=== PATIENT | male | born 2000 | race Caucasian/White ===

== ENCOUNTER → 2021-12-22 13:45 | Outpatient (CLI) | payer OTHER, SELFPAY ==
--- NOTE | ~2021-12-22 | XR_ITS ---
EXAMINATION: XR chest 2V DATE: 12/22/2021 14:34 INDICATION: Shortness of breath. TECHNIQUE: Frontal and lateral views of the chest were obtained. COMPARISON: None. FINDINGS: The chest demonstrates clear lungs without pneumonia, pleural effusion, or pneumothorax. Th e heart size is normal. IMPRESSION: 1. No acute cardiopulmonary disease. Reviewed, dictated and finalized at location A.
== END ==
DX: R06.02 Shortness of breath (principal)
CPT/HCPCS: 71046

== ENCOUNTER 2023-10-16 11:35 | Emergency (ER) | payer OTHER, SELFPAY ==
[2023-10-16 11:35] VITALS: BP 103/62; PULSE 53; RESP 18; TEMP 36.4; O2SAT 97
[2023-10-16 12:01] VITALS: BP 101/70; PULSE 51; RESP 16; O2SAT 100
[2023-10-16] MEDS: SODIUM CHLORIDE 0.9% IV 1,000 ML 999 ML IV CONT (12:02)
[2023-10-16 12:20] LABS: Anion Gap 12 mmol/L (4-12); Blood Urea Nitrogen 13 mg/dL (9-20); Calcium 9.5 mg/dL (8.4-10.2); Carbon Dioxide 24 mmol/L (22-30); Chloride 103 mmol/L (98-107); Estimated CRCL calculation 92 ml/min; Estimated Glomerular Filt Rate > 60; Glucose 93 mg/dL (65-110); Potassium 3.5 mmol/L (3.4-5.0); Sodium 139 mmol/L (137-145)
[2023-10-16 12:29] LABS: Creatine Kinase 52 U/L (55-170)
--- NOTE | 2023-10-16 13:16 | ED.GENADULT ---
HPI - General Adult General Chief complaint: Environmental Exposure Stated complaint: exhausted Time Seen by Provider: 10/16/23 11:40 History of Present Illness HPI narrative: Patient is a 23-year-old male who presents ER after getting overheated. He is riding a bike around town and went about 3 miles. He did not bring a water with him and felt exhausted. He stopped it a person's house to get water in late and there grass in the called an ambulance. He has no pain. No chest pain or shortness of breath. No additional concerns or complaints. Related Data Allergies Allergy/AdvReac Type Severity Reaction Status Date / Time acetaminophen [From Vicodin] Allergy Nausea Verified 10/16/23 11:41 hydrocodone [From Vicodin] Allergy Nausea Verified 10/16/23 11:41 Review of Systems Constitutional: Constitutional: Reports excessive sweating, Denies fever(s), Reports lethargy and Reports weakness ENT: Reports system reviewed and no additional complaints, except as documented Cardiovascular: Cardiovascular: Reports no additional cardiovascular complaints Respiratory: Respiratory: Reports no additional respiratory complaints [facility] Past Medical History Medical History (Updated 10/16/23 @ 13:43 by Tino Baig MD) Healthy adult male Surgical History Surgical History (Updated 10/16/23 @ 13:17 by Tino Baig MD) No history of previous surgery Exam Narrative: GENERAL: Well-appearing, well-nourished, and in no acute distress. HEAD: Normocephalic, atraumatic. ENT: Mucous membranes moist. NECK: Supple. CHEST: Clear to auscultation. No respiratory distress. HEART: Regular rate and rhythm. Normal peripheral pulses. EXTREMITIES: Normal range of motion. No edema. SKIN: Warm, moist, no rash. NEURO: Alert and oriented x3. PSYCH: Normal mood and affect. Course Course Emergency Course: Patient resting comfortably. Hydrated. Normal BMP and CK. Discharge. Vital Signs Vital signs: Vital Signs Temperature 97.6 F 10/16/23 11:35 Pulse Rate 53 L 10/16/23 11:35 Respiratory Rate 18 10/16/23 11:35 Blood Pressure 103/62 10/16/23 11:35 Pulse Oximetry 97 10/16/23 11:35 Oxygen Delivery Room Air 10/16/23 11:35 Temperature 97.6 F 10/16/23 11:35 Pulse Rate 51 L 10/16/23 12:01 Respiratory Rate 16 10/16/23 12:01 Blood Pressure 101/70 10/16/23 12:01 Pulse Oximetry 100 10/16/23 12:01 Oxygen Delivery Room Air 10/16/23 11:35 Medical Decision Making Vital Signs Vital Signs: Vital Signs Temperature 97.6 F 10/16/23 11:35 Pulse Rate 53 L 10/16/23 11:35 Respiratory Rate 18 10/16/23 11:35 Blood Pressure 103/62 10/16/23 11:35 Pulse Oximetry 97 10/16/23 11:35 Oxygen Delivery Room Air 10/16/23 11:35 Temperature 97.6 F 10/16/23 11:35 Pulse Rate 51 L 10/16/23 12:01 Respiratory Rate 16 10/16/23 12:01 Blood Pressure 101/70 10/16/23 12:01 Pulse Oximetry 100 10/16/23 12:01 Oxygen Delivery Room Air 10/16/23 11:35 Lab Data 10/16/23 12:03 Labs: Lab Results 10/16/23 Range/Units 12:03 Sodium 139 (137-145) mmol/L Potassium 3.5 (3.4-5.0) mmol/L Chloride 103 (98-107) mmol/L Carbon Dioxide 24 (22-30) mmol/L Anion Gap 12 (4-12) mmol/L BUN 13 (9-20) mg/dL Creatinine 0.90 (0.7-1.3) mg/dL Estim Creat Clear Calc 92 ml/min Estimated GFR > 60 (59 - ) Glucose 93 (65-110) mg/dL Calcium 9.5 (8.4-10.2) mg/dL Total Creatine Kinase 52 L (55-170) U/L Discharge Plan Discharge Clinical Impression: Heat exhaustion Patient Disposition: Home, Self-Care Condition: Stable Instructions: Heat Exhaustion (ED) Additional Instructions: Return the ER if you lose consciousness, you cannot keep down food/water/medication, or you have additional concerns. Follow-up/Referrals: UNKNOWN,DOCTOR [Primary Care Provider] - 1 Week
[2023-10-16 13:54] VITALS: BP 110/76; PULSE 54; RESP 18; TEMP 36.4; O2SAT 98
== END 2023-10-16 13:56 | disposition home or self-care (01) ==
PROVIDERS: Emergency Provider Emergency Medicine
DX: T67.5XXA Heat exhaustion, unspecified, initial encounter (principal)
CPT/HCPCS: 36415; 80048; 82550; 95863; 96360; 99283; J7030

== ENCOUNTER 2024-01-15 10:23 | Emergency (ER) | payer OTHER, SELFPAY ==
--- NOTE | 2024-01-15 10:26 | ED.GENADULT ---
HPI - General Adult General Chief complaint: Upper Respiratory Infection Stated complaint: Sore Throat Time Seen by Provider: 01/15/24 10:26 Source: patient Mode of arrival: ambulatory Limitations: no limitations History of Present Illness HPI narrative: 23-year-old male patient presents to the [facility] with complaints of sore throat for the past 2 weeks. Denies fevers, body aches or chills. Denies any abdominal pain, nausea, vomiting or diarrhea. Denies any coughing, chest pain shortness of breath. Denies any headaches. Patient states he is not taking anything for his symptoms since they began. Patient states he is concerned he might have strep. Related Data Home Medications Medication Instructions Recorded Confirmed No Home Medications 01/15/24 01/15/24 Allergies Allergy/AdvReac Type Severity Reaction Status Date / Time acetaminophen [From Vicodin] Allergy Nausea Verified 01/15/24 10:47 hydrocodone [From Vicodin] Allergy Nausea Verified 01/15/24 10:47 Review of Systems Review of Systems: CONSTITUTIONAL: Denies fever, chills, or sweats. EYES: Denies visual changes, redness, or discharge. ENT: Denies rhinorrhea, congestion, Positive sore throat, or otalgia. CARDIOVASCULAR: Denies chest pain, palpitations, or edema. RESPIRATORY: Denies cough or dyspnea. GASTROINTESTINAL: Denies abdominal pain, nausea, vomiting, or diarrhea. GENITOURINARY: Denies dysuria or hematuria. SKIN: Denies rash or itching. MUSCULOSKELETAL: Denies back pain, joint pain, or myalgia. NEUROLOGIC: Denies headache, numbness, or weakness. PSYCHIATRIC: Denies anxiety or depression. PMFSH Past Medical History Medical History Healthy adult male Surgical History Surgical History No history of previous surgery Comments At the time of my signature I agree with nursing past medical history, surgical, social, and family history. There is no relevant family history pertinent to the presenting complaint. Exam Narrative: GENERAL: Well-appearing, well-nourished, and in no acute distress. HEAD: Normocephalic, atraumatic. EYES: PERRLA and EOMI. ENT: Nares with erythema edema noted bilaterally, no active rhinorrhea or epistaxis. Mucous membranes moist. posterior pharynx with no erythema, tonsillar enlargement, exudates or lesions present. Bilateral TMs are clear no erythema foreign bodies the canal. NECK: Supple. No lymphadenopathy CHEST: Clear to auscultation. No respiratory distress. HEART: Regular rate and rhythm. No murmur heard. Normal peripheral pulses. ABDOMEN: Soft, nontender, nondistended, normal active bowel sounds. EXTREMITIES: Normal range of motion. No edema. SKIN: Warm, dry, no rash. NEURO: No focal deficits. Alert and oriented x3. Course Course Level of Care: Express Care Visit Vital Signs Vital signs: Vital Signs Temperature 36.6 C 01/15/24 10:38 Pulse Rate 54 L 01/15/24 10:38 Respiratory Rate 16 01/15/24 10:38 Blood Pressure 116/63 01/15/24 10:38 Pulse Oximetry 99 01/15/24 10:38 Temperature 36.6 C 01/15/24 10:38 Pulse Rate 54 L 01/15/24 10:38 Respiratory Rate 16 01/15/24 10:38 Blood Pressure 116/63 01/15/24 10:38 Pulse Oximetry 99 01/15/24 10:38 vital signs reviewed. Medical Decision Making MDM Narrative Medical decision making narrative: plan care patient is to discharge home. Notified him that his rapid strep is negative. Recommend that he try some [id number] antihistamines, warm salt water gargles, hot tea and honey to help alleviate the sore throat symptoms. Patient is aware the plan of care denies any other questions or concerns at this time. Differential Diagnosis Differential Diagnosis: Differential diagnosis: Viral pharyngitis, pharyngitis, group A strep, infectious mononucleosis, gonococcal pharyngitis, exudative pharyngitis, oral candidiasis. Chronic allergies, postnasal drip, GERD, abscess formation, but glottitis, retropharyngeal abscess formation, or airway obstruction. Vital Signs Vital Signs: Vital Signs Temperature 36.6 C 01/15/24 10:38 Pulse Rate 54 L 01/15/24 10:38 Respiratory Rate 16 01/15/24 10:38 Blood Pressure 116/63 01/15/24 10:38 Pulse Oximetry 99 01/15/24 10:38 Temperature 36.6 C 01/15/24 10:38 Pulse Rate 54 L 01/15/24 10:38 Respiratory Rate 16 01/15/24 10:38 Blood Pressure 116/63 01/15/24 10:38 Pulse Oximetry 99 01/15/24 10:38 Critical Care Time Critical Care Time Critical Care Time: No Discharge Plan Discharge Clinical Impression: Pharyngitis, Acute rhinosinusitis Patient Disposition: Home, Self-Care Condition: Stable Instructions: Antibiotic Form, Sinusitis (ED) Additional Instructions: A sore throat can be caused by an infection from a virus or bacteria. Sore throat can also be caused by postnasal drip, allergies, and exposure to smoke. A viral sore throat last 3-4 days and cannot be treated with antibiotics. One type of sore throat virus, infectious mononucleosis ( mono ), can last for 3 weeks and older children. The germs that cause these infections are contagious and can be spread by coughing or sharing drinks or utensils. Contact her primary care physician or go to the ER if: Your trouble breathing or swallowing because her throat is swollen or sore. You're drooling because it hurts too much to swallow. You're painful lump in your throat go away after 5 days. You're fever is higher than 10 2??F or last longer than 3 days. You have confusion. You are blood in your throat. You're sore throat should feel better within 3-5 days without treatment if it is caused by virus. You may need the following: Ibuprofen or Tylenol as needed for pain or fever Gargle warm salt water Drink more liquids, cold or warm drinks may help soothe her throat. Humidifier in your room. Cough drops, ice, soft foods, or popsicles may help soothe her throat. A spoonful of honey could help with inflammation and soothe her throat. Wash her hands with soap and water, do not share food or drinks, throat away her toothbrush after 72 hours. Prescriptions: No Action No Home Medications Follow-up/Referrals: PHYSICIAN,[employer] [Primary Care Provider] - Time of Disposition: 10:55
[2024-01-15 10:38] VITALS: BP 116/63; PULSE 54; RESP 16; TEMP 36.6; O2SAT 99
[2024-01-15 11:01] LABS: EDSTREPNEGPOS1 Negative (Negative)
== END 2024-01-15 11:10 | disposition home or self-care (01) ==
PROVIDERS: Emergency Provider Nurse Practitioner Family
DX: J02.9 Acute pharyngitis, unspecified (principal); J01.90 Acute sinusitis, unspecified
CPT/HCPCS: 87081; 87880; 99213; G0463